=== PATIENT | male | born 1985 | race Caucasian/White ===

== ENCOUNTER 2017-08-21 21:02 | Emergency (ER) | payer OTHER ==
[~2017-08-21] VITALS: Ht 175.3 cm; Wt 76.8 kg
[2017-08-21 21:18] VITALS: BP 119/77
--- NOTE | 2017-08-21 21:22 | NUR ---
2121: PT AMBULATED TO CHAIR A
--- NOTE | 2017-08-21 21:22 | NUR ---
Shari reid in [facility] - 08/21/17 at 2122 by ED PT AMBULATED TO CHAIR A
--- NOTE | 2017-08-21 21:31 | NUR ---
Patient being evaluated by PA.
--- NOTE | 2017-08-21 21:32 | NUR ---
31Y/M PT. PRESENTS TO ED WITH C/O TOOTHACHE ON LT. LOWER SIDE. NO MED HX. AAO X4, AMBULATORY WITH STEADY GAIT. STATES TOOTHCAHE 03/11, VSS, ER MADE AWARE OF PT. STATUS.
--- NOTE | 2017-08-21 21:45 | NUR ---
Patient discharged with v/s stable. Written and verbal after care instructions given and explained. Patient alert, oriented and verbalized understanding of instructions. Ambulatory with steady gait. All questions addressed prior to discharge. ID band removed. Patient advised to follow up with PMD. Rx of AMOXICILLIN, NORCO, MOTRIN given. Patient educated on indication of medication including possible reaction and side effects. Opportunity to ask questions provided and answered.
[2017-08-21 21:47] VITALS: BP 119/77
== END 2017-08-21 21:45 | disposition home or self-care (01) ==
LOC: MED 21:02
DX: K02.9 Dental caries, unspecified (principal); K04.7 Periapical abscess without sinus
CPT/HCPCS: 99283